=== PATIENT | male | born 1970 | race Caucasian/White ===

== ENCOUNTER 2024-06-20 22:36 | Emergency (ER) | payer OTHER ==
[~2024-06-20] VITALS: Ht 180.3 cm; Wt 77.1 kg
[~2024-06-20 22:36] MED LIST: AMLODIPINE-VAL1 EAC3 PO; SODIUM BICARBO650 MG PO; TYLENOL WITH C1 EACH PO; ULTRAM 50MG50 MG PO
[2024-06-20 22:43] VITALS: PULSE 86; RESP 16; TEMP 98.3; O2SAT 100
[2024-06-20] MEDS ORDERED: DOXYCYCLINE HY100 MG PO (22:53)
== END 2024-06-20 22:55 | disposition home or self-care (01) ==
LOC: ER 22:43
DX: L03.116 Cellulitis of left lower limb (principal); L03.115 Cellulitis of right lower limb; I10 Essential (primary) hypertension; M54.9 Dorsalgia, unspecified; G89.29 Other chronic pain; F17.210 Nicotine dependence, cigarettes, uncomplicated
CPT/HCPCS: 99283